=== PATIENT | female | born 1945 | race Two or more races ===

== ENCOUNTER → 2020-07-26 | Outpatient (CLI) | payer MEDICARE, BC, OTHER ==
--- NOTE | 2020-07-31 16:36 | RAD ---
PROCEDURE: MG 2D BILAT SCREENING HISTORY: The patient is 75 years old and is seen for Reason: SCREENING / Spl. Instructions: / Histor y: . COMPARISON: July 27, 2018 and July 29, 2016 TECHNIQUE: CC and MLO views of both breasts were obtained. Images were processed by the [employer] computer-aided detection system. DENSITY: There are scattered fibroglandular densities. FINDINGS: No developing mass, suspicious calcifications or architectural distortion. IMPRESSION: Negative. No evidence of malignancy. Recommend annual screening mammograms per [employer] [place] guidelines. She will be due in one year. BI-RADS category 1 Negative Patient entered into a reminder system for annual screening mammogram. Electronically signed by: Angelo Hill DO (07/31/2020 4:34 PM) [email or web address]
== END ==
LOC: MAMMO 07:51
PROVIDERS: ATTEND Physician Assistant
DX: Z12.31 Encounter for screening mammogram for malignant neoplasm of breast (principal)
CPT/HCPCS: 77067